=== PATIENT | female | born 1990 | race Caucasian/White ===

== ENCOUNTER 2017-01-16 09:35 | Emergency (ER) | payer MEDICAID ==
[2017-01-16] MEDS ORDERED: KETOROLAC 60 MG/2 ML VIAL IM STA (10:42)
[2017-01-16] MEDS ORDERED: DEXAMETHASONE 10 MG/ML VIAL PO STA (10:42)
--- NOTE | 2017-01-16 10:44 | ED Physician Documentation ---
PD HPI HEENT - Stated complaint Stated Complaint: TOOTH PX - Chief complaint Chief Complaint: Heent - History obtained from History obtained from: Patient, Family - History of Present Illness Timing - onset: How many days ago (5) Timing - duration: Days (5) Timing - details: Gradual onset, Still present Pain level max: >10 Pain level now: 10 Location: Tooth Improves: Medication Worsens: Swalllowing Associated symptoms: Congestion, Headache Similar symptoms before: Diagnosis (abscessed tooth) Recently seen: Emergency Dept - Additional information Additional information: 26-year-old female with a broken left upper molar has developed severe pain in the area and swelling in her face. She was placed onto some amoxicillin and Vicodin gas through an emergency department in [place] and she has run out of her pain medication and her pain is worse than when it first started. She is describing shooting pains into her face that are intolerable and lancinating and she has sensitivity to air over her broken tooth. Review of Systems Constitutional: denies: Fever Eyes: denies: Decreased vision Ears: denies: Ear pain Nose: reports: Congestion Throat: reports: Dental pain / toothache Cardiac: denies: Chest pain / pressure, Palpitations Respiratory: reports: Cough. denies: Dyspnea GI: reports: Vomiting, Constipation PD PAST MEDICAL HISTORY - Past Medical History Cardiovascular: None Respiratory: None Neuro: None Endocrine/Autoimmune: None GI: None CHANNEL MAN: None : None HEENT: None Psych: None Musculoskeletal: None Derm: None - Past Surgical History Past Surgical History: No - Present Medications Home Medications: Ambulatory Orders Medication Instructions Recorded Confirmed Amoxicillin 500 mg PO DAILY 01/16/17 01/16/17 Clindamycin [Cleocin] 300 mg PO Q6H #28 capsule 01/16/17 oxyCODONE/ACET 5/325 [Percocet 5 1 - 2 each PO Q4-6H PRN #20 tablet 01/16/17 mg/325 mg] - Allergies Allergies/Adverse Reactions: Allergies Allergy/AdvReac Type Severity Reaction Status Date / Time No Known Drug Allergies Allergy Verified 08/09/14 13:10 - Social History Does the pt smoke?: Yes Smoking Status: Current every day smoker Does the pt drink ETOH?: Yes Does the pt have substance abuse?: No - Immunizations Immunizations are current?: Yes - POLST Patient has POLST: No PD ED PE NORMAL - Vitals Vital signs reviewed: Yes (Hypertensive) - General General: Other (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 There is no swelling to the gum itself. There is pain to palpation of the face overlying the area of the molar.), No bony TTP - Cardiac Cardiac: RRR, No murmur - Respiratory Respiratory: No respiratory distress, Clear bilaterally - Derm Derm: Normal color, Warm and dry, No rash - Extremities Extremities: No deformity, No edema - Neuro Neuro: No motor deficit, No sensory deficit - Psych Psych: Normal mood, Normal affect Results - Vitals Vitals: Vital Signs - 24 hr 01/16/17 09:37 Temperature 36.2 C L Heart Rate 74 Respiratory 18 Rate Blood Pressure 139/92 H O2 Saturation 100 Oxygen O2 Source Room air PD MEDICAL DECISION MAKING - ED course Complexity details: considered differential, d/w patient, d/w family ED course: 26-year-old female with a broken left upper molar is in severe pain and has sensitivity that appears to be nerve sensitivity. She is administered At over the top of the broken area and this is dispensed to the patient for future use. She is also administered dexamethasone 10 mg orally and Toradol 30 mg IM. We will change her pain medication to Percocet and will change her antibiotic to clindamycin. She will have follow-up with the dentist on Tuesday. Departure - Departure Disposition: Home, Self Care Clinical Impression: Pain, dental Condition: Stable Instructions: ED Tooth Pain Follow-Up: Your, doctor [Other] Prescriptions: Clindamycin [Cleocin] 300 mg PO Q6H #28 capsule oxyCODONE/ACET 5/325 [Percocet 5 mg/325 mg] 1 - 2 each PO Q4-6H PRN #20 tablet PRN Reason: Pain
[2017-01-16] MEDS ORDERED: KETOROLAC 30 MG/ML VIAL ONE (10:45)
[2017-01-16] MEDS ORDERED: CHERRY SYRUP 10 ML UDC PO ONE (10:45)
[2017-01-16] MEDS ORDERED: DEXAMETHASONE 10 MG/ML VIAL ONE (10:45)
[2017-01-16 11:00] VITALS: BP 123/70
== END 2017-01-16 11:01 | disposition home or self-care (01) ==
LOC: ED 09:35
DX: K08.89 Other specified disorders of teeth and supporting structures (principal); F17.200 Nicotine dependence, unspecified, uncomplicated
CPT/HCPCS: 96372; 99283; A9270